=== PATIENT | male | born 1990 | race Caucasian/White ===

== ENCOUNTER 2018-12-04 08:19 | Observation (INO) | payer OTHER, SELFPAY ==
[2018-12-04 08:46] LABS: #Eosinphils 0.1 thou/uL (0.0-0.7); #Lymphocytes 2.2 thou/uL (1.20-3.40); #Monocytes 0.3 thou/uL (0.11-0.59); #Neutrophils 2.3 thou/uL (1.40-6.50); %Basophils 0.7 % (0.0-1.0); %Eosinophils 2.8 % (0.0-10.0); %Lymphocytes 44.2 % (21.0-51.0); %Monocytes 5.4 % (0.0-10.0); Hemoglobin 13.6 g/dL (14.0-18.0); Mean Corpuscular HGB CONC 33.8 g/dL (32.0-36.0); Mean Corpuscular Hemoglobin 28.4 pg (27.0-31.0); Mean Corpuscular Volume 84.1 fL (78.0-98.0); Mean Platelet Volume 8.2 fL (7.4-10.4); Platelet Count 197 thou/uL (130-400); RBC Distribution Width 12.4 % (11.5-14.5); Red Blood Cell (RBC) Count 4.79 mill/uL (4.70-6.10); White Blood Cell (WBC) Count 4.9 thou/uL (4.8-10.8)
[2018-12-04 09:26] LABS: ALT (SGPT) 14 U/L (8-55); AST (SGOT) 25 U/L (5-34); Acetaminophen Less than 6.0 mcg/mL (10.0-30.0); Albumin 4.3 g/dL (3.5-5.0); Alcohol Less than 10 mg/dL (Less than 10); Alkaline Phosphatase 61 U/L (40-150); Anion Gap 16 mmol/L (10-20); BUN (Urea Nitrogen) 13 mg/dL (8.9-20.6); Bilirubin, Total 0.8 mg/dL (0.2-1.2); CK (CPK) 93 U/L (30-200); Calc. Creatinine Clearance 0 mL/min (70-130); Calcium 9.4 mg/dL (7.8-10.44); Carbon Dioxide 22 mmol/L (22-29); Chloride 105 mmol/L (98-107); Estimated GFR-MDRD 80; Globulin 3.1 g/dL (2.4-3.5); Glucose 128 mg/dL (70-105); Protein, Total 7.4 g/dL (6.0-8.3); Salicylate Less than 8.0 mg/dL (15.0-30.0); Sodium 139 mmol/L (136-145)
[2018-12-04 10:39] LABS: Amphetamine Not Detected (NotDetected); Barbiturates Screen Not Detected (NotDetected); Benzodiazepine Screen Not Detected (NotDetected); Cocaine Metabolite Screen Not Detected (NotDetected); Medtox Control Line Valid? VALID (VALID); Medtox Reader # READER 1; Methadone Not Detected (NotDetected); Methamphetamine Not Detected (NotDetected); Opiate Screen Not Detected (NotDetected); Oxycodone Screen Not Detected (NotDetected); Phencyclidine (PCP) Not Detected (NotDetected); THC/Cannabinoid Screen Not Detected (NotDetected); Tricyclic Screen Not Detected (NotDetected)
[2018-12-04] MEDS ORDERED: Acetaminophen 325 MG TAB PO PRN (11:41)
--- NOTE | 2018-12-04 12:25 | HP ---
PRIMARY CARE PROVIDER: [facility]. CHIEF COMPLAINT: Syncope. HISTORY OF PRESENT ILLNESS: Mr. Laureano is a pleasant 28-year-old gentleman, who was seen at [facility] on 12/04/2018. He reports that in 2010 or 2011, he had a syncopal episode. He was then started on a heart monitor. While wearing the monitor, he got an injection. His heart reportedly stopped for 45 seconds. Following that, he underwent stress test and a test for epilepsy at [facility]. He also had cardiac catheterization in [place]. All tests were negative. Since then, he has received multiple injections and had blood samples drawn without any problem. His last meal was yesterday evening. He went to [facility] today for annual blood work. He gave the blood and then stood up. Then, he felt lightheaded and passed out. He was eased into a chair by his friends. EMS was called. They reached there within 5 or 6 minutes. They asked him to stand up to get on the stretcher. He tried to stand and again felt lightheaded and passed out. He also had some blurry vision during these episodes, which has resolved. According to emergency room physician, EMS lost pulse for 20 to 30 seconds. REVIEW OF SYSTEMS: All other systems reviewed and found to be negative. PAST MEDICAL HISTORY: None. SURGICAL HISTORY: Cardiac catheterization. FAMILY HISTORY: No family history of premature coronary artery disease. SOCIAL HISTORY: The patient chews tobacco. He drinks alcohol occasionally. He denies any recreational drug use. ALLERGIES: NO KNOWN DRUG ALLERGIES. CURRENT MEDICATIONS: None. PHYSICAL EXAMINATION: GENERAL: On examination, Mr. Laureano is awake and alert, not in acute distress. VITAL SIGNS: Blood pressure is 124/70, pulse 71, respiratory rate 16, and oxygen saturation 98% on room air. He is afebrile. EYES: No scleral icterus, no conjunctival pallor. ENT: Moist mucosal membranes. No oropharyngeal erythema or exudates. NECK: Supple, nontender, trachea is midline. RESPIRATORY: Accessory muscles of breathing are not active. Chest wall movements are symmetric bilaterally. LUNGS: Clear to auscultation without wheeze, rhonchi, or crepitations. CARDIOVASCULAR: S1 and S2 are heard, regular. Peripheral pulses palpable. NEUROLOGIC: Cranial nerves 2 through 12 are intact. SKIN: No rashes or subcutaneous nodules. MUSCULOSKELETAL: Power is 5/5 in all four extremities. LYMPHATIC: No cervical lymphadenopathy. PSYCHIATRIC: Normal mood, normal affect, the patient is oriented to person, place, and time. LABORATORY DATA: Mr. Laureano's labs and investigations were reviewed. Electrocardiogram shows normal sinus rhythm, no ST changes to suggest an acute coronary syndrome. He has normocytic anemia with hemoglobin 13.6, normal white count, normal platelet count, unremarkable comprehensive metabolic profile, 1st troponin normal and negative urine toxicology screen. ASSESSMENT AND PLAN: Mr. Laureano is a pleasant 28-year-old gentleman, who was seen at [facility] on December 04, 2018. His problem list includes: 1. Syncope: Mr. Laureano is presenting with recurrent syncope, most likely vasovagal, given these circumstances. There is concern that there was no pulse for 20 to 30 seconds. He will be admitted to the hospital on observation status and monitored on telemetry. His troponin is being rechecked. I will consult Cardiology for opinion and for any further tests. 2. Anemia: Mild. Likely asymptomatic. LEVEL OF RISK: Moderate. LEVEL OF COMPLEXITY: Moderate. Job ID: [id number]
[2018-12-04 13:33] VITALS: BMI 30.9
--- NOTE | 2018-12-04 19:50 | CON ---
DATE OF CONSULTATION: 12/04/2018 REASON FOR CONSULTATION: Syncope. HISTORY OF PRESENT ILLNESS: Mr. Laureano is a very pleasant 28-year-old gentleman with a previous episode of syncope in 2011. He had a full workup. He states he also had a brief episode of atrial fibrillation. He underwent coronary angiography. Those records are not available. He states this all occurred after a needlestick. He states since that time he has had multiple needlesticks without any issues. Most recently, he again was getting blood and when he stood up, he felt lightheaded, then had a syncopal episode. The time frame on how long he passed out was unknown, but there is documentation in the chart stating he lost his pulse for 20 to 30 seconds. Again, no rhythm strip documentation present. PAST MEDICAL HISTORY: None. PAST SURGICAL HISTORY: None. FAMILY HISTORY: None. SOCIAL HISTORY: No current tobacco or alcohol use. ALLERGIES: NONE. HOME MEDICATIONS: None. REVIEW OF SYSTEMS: A 10-point review of systems is reviewed as above, otherwise negative. PHYSICAL EXAMINATION: GENERAL: Patient is a pleasant male, who is in no acute distress. The patient appears their stated age. VITAL SIGNS: Blood pressure 111/65, pulse 66, temperature 98.1. NEUROLOGIC: The patient is alert and oriented x3 with no focal neurologic deficits. HEENT: Sclerae without icterus. Mouth has moist mucous membranes with normal pallor. NECK: No JVD. Carotid upstroke brisk. No bruits bilaterally. LUNGS: Clear to auscultation with unlabored respirations. BACK: No scoliosis or kyphosis. CARDIAC: Regular rate and rhythm with normal S1 and S2. No S3 or S4 noted. No significant rubs, murmurs, thrills, or gallops noted throughout the precordium. PMI is not displaced. There is no parasternal heave. ABDOMEN: Soft, nontender, nondistended. No peritoneal signs present. No hepatosplenomegaly. No abnormal striae. EXTREMITIES: 2+ femoral and 2+ dorsalis pedis pulses. No cyanosis, clubbing, or edema. SKIN: No gross abnormalities. PERTINENT LABORATORY AND DIAGNOSTIC DATA: EKG; normal sinus rhythm, normal EKG. Hemoglobin 13.6. BNP within normal limits. IMPRESSION: Syncope. RECOMMENDATIONS: Likely represents vasovagal syncope. Maybe a benefit to wear 3-week event recorder to assess for any significant dysrhythmias. We will also recommend an echo with Doppler. If his overnight telemetry monitoring is normal and his echo is within normal limits, it would be okay from my standpoint to discharge home with close outpatient followup. We would also like to do a carotid sinus massage to assess for carotid hypersensitivity. Could not be done today due to a Tornado warning. Job ID: [id number]
[2018-12-05 04:58] LABS: #Eosinphils 0.2 thou/uL (0.0-0.7); #Lymphocytes 2.9 thou/uL (1.20-3.40); #Monocytes 0.4 thou/uL (0.11-0.59); #Neutrophils 3.4 thou/uL (1.40-6.50); %Basophils 0.7 % (0.0-1.0); %Lymphocytes 41.4 % (21.0-51.0); %Monocytes 6.3 % (0.0-10.0); %Neutrophils 48.7 % (42.0-75.0); Hemoglobin 13.6 g/dL (14.0-18.0); Mean Corpuscular HGB CONC 34.3 g/dL (32.0-36.0); Mean Corpuscular Hemoglobin 29.4 pg (27.0-31.0); Mean Corpuscular Volume 85.7 fL (78.0-98.0); Mean Platelet Volume 7.9 fL (7.4-10.4); Platelet Count 228 thou/uL (130-400); RBC Distribution Width 12.1 % (11.5-14.5); Red Blood Cell (RBC) Count 4.63 mill/uL (4.70-6.10); White Blood Cell (WBC) Count 6.9 thou/uL (4.8-10.8)
[2018-12-05 05:17] LABS: Anion Gap 12 mmol/L (10-20); BUN (Urea Nitrogen) 15 mg/dL (8.9-20.6); Calc. Creatinine Clearance 155 mL/min (70-130); Calcium 9.5 mg/dL (7.8-10.44); Carbon Dioxide 30 mmol/L (22-29); Chloride 104 mmol/L (98-107); Estimated GFR-MDRD 74; Glucose 88 mg/dL (70-105); Potassium 3.8 mmol/L (3.5-5.1); Sodium 142 mmol/L (136-145)
--- NOTE | 2018-12-05 06:52 | PDOC.CTH ---
Cardiology Progress Note - Subjective No changes noted overnight - Objective Vital Signs Temp Pulse Resp BP Pulse Ox 12/05/18 03:49 98.5 F 61 12 124/57 L 98 12/04/18 23:55 98.1 F 64 20 121/61 99 12/04/18 19:26 98.0 F 60 16 122/63 100 Weight 256 lb 12.8 oz 12/03/18 12/04/18 12/05/18 06:59 06:59 06:59 Intake Total 1100 Output Total 325 Balance 775 - Physical Examination General/Neuro: alert & oriented x3, NAD Neck: carotid US brisk, no JVD present Lungs: unlabored respirations Heart: PMI normal, RRR Abdomen: NT/ND, soft Extremities: + femoral B - Labs Result Diagrams: 12/05/18 04:39 12/05/18 04:39 Troponin/CKMB Troponin I Less than 0.010 ng/mL (< 0.028) 12/04/18 15:38 - Assessment/Plan Syncope Likely vasovagal. carotid hypersensitivity (-) If echo (-), recommend three week event recorder. I EVR negative, consider ILR if recurrrent
[2018-12-05 15:44] VITALS: BP 124/59; TEMP 98.6
--- NOTE | 2018-12-06 02:10 | DIS ---
DATE OF ADMISSION: 12/04/2018 DATE OF DISCHARGE: 12/05/2018 ALLERGIES: NO KNOWN DRUG ALLERGIES. CHIEF COMPLAINT: Syncope. FINAL DIAGNOSES: 1. Syncope, likely vasovagal in the setting of blood donation. 2. History of syncope in the past with workup negative. 3. History of atrial fibrillation in remote past, CHADS-VASc equals zero, no arrhythmia noted per hospitalization. PROCEDURE PERFORMED: None. LABORATORY RESULTS: White blood cell count 6.9, hemoglobin 13.6, hematocrit 39.7, platelets are 228. Sodium 142, potassium 3.8, chloride 104, carbon dioxide 30, anion gap 12, BUN 15, creatinine 1.18. Liver enzymes within normal limits. Troponin is negative. IMAGING RESULTS: Echocardiogram; normal left ventricular systolic function with EF of 50% to 55%, normal diastolic function, no regional wall motion abnormalities. Trace MR, mild TR, mild pulmonic regurgitation. CONSULTATIONS: Dr. Ragland of Cardiology. VITAL SIGNS: Blood pressure 124/59, pulse is 54, O2 saturation is 99% on room air, respirations are 15. HOSPITAL COURSE: The patient is a pleasant 28-year-old male, with a previous episode of syncope 6 years ago, who presented to the hospital yesterday with a repeat syncopal episode after having his blood drawn at the [facility] for routine physical. After he had his blood drawn, he stood up, felt very lightheaded and passed out. He was then eased into a chair by his friends, and EMS was called. EMS asked the patient to stand up and get on the stretcher and again felt lightheaded and passed out. He initially had some blurry vision during these episodes, which resolved. He denies any chest pain or shortness of breath or palpitations. The patient lives an active lifestyle. He did have a history of arrhythmia in the remote past and had full cardiac workup including a cardiac catheterization and all of his workup was negative, although records are not available. On arrival to our facility, workup has been largely negative. His EKG showed normal sinus rhythm and was otherwise normal, telemetry revealed no arrhythmias overnight. He was seen in consultation with Dr. Ragland, an echo was ordered with findings outlined as above. Dr. Ragland performed carotid sinus massage to assess for carotid hypersensitivity, and this test was negative. Today, the patient feels well. He was seen in his hospital room with his . He denies any chest pain or shortness of breath. No further syncopal episodes. His appetite is good. No fever or chills. PHYSICAL EXAMINATION: GENERAL: The patient is awake, alert, oriented, well-appearing young man. HEENT: Head is atraumatic and normocephalic. Mucous membranes are moist. NECK: Supple. No lymphadenopathy. No carotid bruits. Trachea is midline. LUNGS: Regular respiratory rate and pattern. Clear to auscultation bilaterally. CV: S1 and S2. Regular rate and rhythm. No appreciable murmurs, rubs, or gallops. ABDOMEN: Soft, nontender. Positive bowel sounds. No organomegaly. EXTREMITIES: 2+ DP pulses bilaterally. No edema. SKIN: Warm and dry. No abrasions. No rashes. CONDITION ON DISCHARGE: Stable. DISCHARGE MEDICATIONS: None. DISCHARGE DISPOSITION: Home. PLAN: The patient will follow up with Dr. Ragland in regard to a 3-week event monitor, if Cardiology deems necessary. The patient has been counseled extensively on the nature of vasovagal syncope, and all questions were answered. He will be discharged in good condition today to follow up with Dr. Ragland. Care of this patient has been discussed with Dr. Morales, who agrees with the above. Job ID: [id number]
== END 2018-12-05 17:26 | disposition home or self-care (01) ==
LOC: ERS 08:19 → ERHOLD 10:45 → 2SW 13:32
PROVIDERS: ADMIT Internal Medicine; ATTEND Internal Medicine
DX: R55 Syncope and collapse (principal); F17.220 Nicotine dependence, chewing tobacco, uncomplicated; D64.9 Anemia, unspecified
CPT/HCPCS: 36415; 80048; 80053; 80306; 80307; 82550; 84484; 85025; 93005; 93306; G0378

== ENCOUNTER 2021-08-18 07:52 | Outpatient (CLI) | payer BC, OTHER | END 2021-08-18 07:53 | disposition home or self-care (01) | LOC: TBSIIMAG 07:52 | PROVIDERS: ATTEND Nurse Practitioner Family | DX: S49.92XD Unspecified injury of left shoulder and upper arm, subsequent encounter (principal) ==

== ENCOUNTER 2021-09-05 08:48 | Outpatient (CLI) | payer OTHER | END 2021-09-05 08:49 | disposition home or self-care (01) | PROVIDERS: ATTEND Orthopaedic Surgery | DX: M25.512 Pain in left shoulder (principal) ==